=== PATIENT | male | born 1975 | race Caucasian/White ===

== ENCOUNTER 2019-02-11 10:40 | Emergency (ER) | payer OTHER ==
[2019-02-11 11:00] LABS: BASOPHILS % (AUTO) 0.6 %; EOSINOPHILS # (AUTO) 0.1 10^3/uL (0.0-0.7); EOSINOPHILS % (AUTO) 1.4 %; HGB - HEMOGLOBIN 14.4 g/dL (14.0-18.0); LYMPHOCYTES # (AUTO) 1.8 10^3/uL (1.5-3.5); LYMPHOCYTES % (AUTO) 20.7 %; MEAN CORPUSCULAR HEMOGLOBIN 30.2 pg (27.0-31.0); MEAN CORPUSCULAR HGB CONC 34.1 g/dL (32.0-36.0); MEAN CORPUSCULAR VOLUME 88.6 fL (80.0-94.0); MONOCYTES # (AUTO) 0.7 10^3/uL (0.0-1.0); MONOCYTES % (AUTO) 7.5 %; NEUTROPHILS # (AUTO) 6.1 10^3/uL (1.5-6.6); NEUTROPHILS % (AUTO) 69.8 %; PLT - PLATELET COUNT 376 10^3/uL (130-450); RED BLOOD COUNT 4.77 10^6/uL (4.70-6.10); RED CELL DISTRIBUTION WIDTH 13.2 % (12.0-15.0); WHITE BLOOD COUNT 8.7 x10^3/uL (4.8-10.8)
[2019-02-11 11:14] LABS: ALBUMIN 4.7 g/dL (3.2-5.5); ALBUMIN/GLOBULIN RATIO 1.5 (1.0-2.2); BILIRUBIN,TOTAL 0.7 mg/dL (0.2-1.0); CALCIUM 9.4 mg/dL (8.5-10.3); CREATININE 0.7 mg/dL (0.6-1.2); TOTAL PROTEIN 7.9 g/dL (6.7-8.2)
--- NOTE | 2019-02-11 11:24 | ED Physician Documentation ---
PD HPI CHEST PAIN - Stated complaint Stated Complaint: CHEST PAIN - Chief complaint Chief Complaint: Cardiac - History obtained from History obtained from: Patient - History of Present Illness Timing - onset: How many days ago (5) Timing - onset during: Rest Timing - duration: Seconds Timing - details: Abrupt onset, Now resolved, Intermittant Quality: Sharp, Pain Location: Left chest Radiation: Left upper extremity Improved by: Nothing Worsened by: Other (nothing) Associated symptoms: No: Shortness of air, Diaphoresis, Nausea, Vomiting, Feeling faint / dizzy, General Weakness, Palpitations, Cough Similar symptoms before: Has not had sx before Recently seen: Not recently seen - Additional information Additional information: Previously healthy 43-year-old male has developed sharp intermittent chest pains to the left chest over the past 5 days. He states he has had multiple episodes per day these last seconds and resolved without sequela. He denies any fever cough shortness of breath. Review of Systems Constitutional: denies: Fever Eyes: denies: Decreased vision Ears: denies: Ear pain Nose: denies: Congestion Throat: denies: Sore throat Cardiac: reports: Chest pain / pressure. denies: Palpitations, Pedal edema, Calf pain Respiratory: denies: Dyspnea, Cough GI: denies: Abdominal Pain, Nausea, Vomiting : denies: Dysuria, Frequency Skin: denies: Rash Musculoskeletal: denies: Neck pain, Back pain, Extremity pain, Extremity swelling Neurologic: denies: Generalized weakness, Focal weakness, Numbness PD PAST MEDICAL HISTORY - Past Medical History Past Medical History: No - Past Surgical History Past Surgical History: Yes - Present Medications Home Medications: Ambulatory Orders Medication Instructions Recorded Confirmed No Known Home Medications 02/11/19 02/11/19 - Allergies Allergies/Adverse Reactions: Allergies Allergy/AdvReac Type Severity Reaction Status Date / Time ampicillin Allergy Unknown Verified 02/11/19 10:48 - Social History Does the pt smoke?: No Smoking Status: Former smoker Does the pt drink ETOH?: Yes Does the pt have substance abuse?: No - Immunizations Immunizations are current?: Yes PD ED PE NORMAL - Vitals Vital signs reviewed: Yes (hypertensive ) - General General: Alert and oriented X 3, No acute distress, Well developed/nourished - HEENT HEENT: Atraumatic, PERRL, EOMI - Neck Neck: Supple, no meningeal sign - Cardiac Cardiac: RRR, No murmur - Respiratory Respiratory: No respiratory distress, Clear bilaterally, Other (no chest wall tendereness ) - Abdomen Abdomen: Soft, Non tender - Back Back: No CVA TTP, No spinal TTP - Derm Derm: Normal color, Warm and dry, No rash - Extremities Extremities: No deformity, No edema - Neuro Neuro: Alert and oriented X 3, 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, No motor deficit, No sensory deficit, Normal speech Eye Opening: Spontaneous Motor: Obeys Commands Verbal: Oriented GCS Score: 15 - Psych Psych: Normal mood, Normal affect Results - Vitals Vitals: Vital Signs - 24 hr 02/11/19 10:46 Temperature 36.8 C Heart Rate 85 Respiratory 14 Rate Blood Pressure 166/86 H O2 Saturation 98 Oxygen O2 Source Room air - EKG (time done) 1050 Rate: Rate (enter#) (79) Ischemia: ST elevation c/w repol Compare to prior EKG: Old EKG unavailable Computer interpretation: Agree with computer - Labs Labs: Laboratory Tests 02/11/19 02/11/19 02/11/19 10:54 10:54 10:54 WBC 8.7 RBC 4.77 Hgb 14.4 Hct 42.2 MCV 88.6 MCH 30.2 MCHC 34.1 RDW 13.2 Plt Count 376 MPV 8.0 Neut # (Auto) 6.1 Lymph # (Auto) 1.8 Dyer # (Auto) 0.7 Eos # (Auto) 0.1 Baso # (Auto) 0.0 Absolute Nucleated RBC 0.00 Nucleated RBC % 0.0 Sodium 138 Potassium 4.0 Chloride 101 Carbon Dioxide 23 Anion Gap 14.0 H BUN 14 Creatinine 0.7 Estimated GFR (MDRD) 123 Glucose 82 Calcium 9.4 Total Bilirubin 0.7 AST 32 ALT 39 Alkaline Phosphatase 51 Troponin I < 0.04 Total Protein 7.9 Albumin 4.7 Globulin 3.2 Albumin/Globulin Ratio 1.5 Lipase 26 - Rads (name of study) chest Radiology: Prelim report reviewed (Impression: Normal single view chest.), EMP read indepedently, See rad report PD MEDICAL DECISION MAKING - ED course Complexity details: reviewed results, re-evaluated patient, considered differential, d/w patient ED course: 43-year-old male with atypical chest pains very brief in nature sharp and in the left chest. He has negative diagnostics here in the emergency department neg ative review of systems and an un-concerning story. He is reassured and he will follow-up with his primary. He does state that he has noted his blood pressure has been up and he relates that he has been losing some weight purposely after gaining weight after moving to the area by himself waiting for his family to arrive here. Departure - Departure Disposition: 01 Home, Self Care Clinical Impression: Atypical chest pain Condition: Stable Instructions: ED Chest Pain Atypical Unkn Cause Follow-Up: [facility] [Provider Group]
--- NOTE | 2019-02-11 11:25 | XRAY Report ---
Reason: chest pain Procedure Date: 02/11/2019 Accession Number: [id number] / [id number] Procedure: XR - Chest 1 View X-Ray CPT Code: 41919 FULL RESULT: EXAM: CHEST RADIOGRAPHY EXAM DATE: 02/11/2019 11:10 AM. CLINICAL HISTORY: Chest pain. COMPARISON: None. TECHNIQUE: 1 view. FINDINGS: Lungs/Pleura: No focal opacities evident. No pleural effusion. No pneumothorax. Mediastinum: Within exam limitations, the cardiomediastinal contour is normal. Other: None. IMPRESSION: Normal single view chest. RADIA
[2019-02-11 11:52] VITALS: BP 173/99
== END 2019-02-11 11:55 | disposition home or self-care (01) ==
LOC: ED 10:40
DX: R07.89 Other chest pain (principal); Z87.891 Personal history of nicotine dependence
CPT/HCPCS: 36415; 71045; 80053; 83690; 84484; 85025; 93005; 99283; 99284

== ENCOUNTER 2019-04-09 13:36 | Emergency (ER) | payer OTHER ==
[2019-04-09 13:50] VITALS: BP 147/85
--- NOTE | 2019-04-09 15:32 | ED Physician Documentation ---
PD HPI UPPER EXT INJURY - Stated complaint Stated Complaint: LT BICEP INJURY - Chief complaint Chief Complaint: Trauma Ext - History obtained from History obtained from: Patient - History of Present Illness Location: Left, Arm Type of injury: Fall Where injury occurred: Home Timing - onset: Today Timing - duration: Hours Timing - details: Abrupt onset, Still present Improved by: Rest, Immobilization Worsened by: Moving, Palpating Associated symptoms: Swelling. No: Weakness, Numbness, Tingling Contributing factors: No: Anticoagulated Similar symptoms before: Diagnosis (ruptured achilles) Recently seen: Not recently seen - Additonal information Additional information: 43-year-old male was putting some items up on a shelf in his garage when his ladder slipped out from underneath him he grabbed a hold of the rafter and fell and yanked his arm. He has ruptured his left biceps. He is come in now with a cosmetic deformity to his arm with bulging of his bicep and a defect distally. He is able to flex and extend the arm he is unable to extend it fully he has normal distal neurovascular. Review of Systems Constitutional: denies: Chills Eyes: denies: Decreased vision Ears: denies: Ear pain Nose: denies: Congestion Respiratory: denies: Cough GI: denies: Vomiting, Diarrhea PD PAST MEDICAL HISTORY - Past Medical History Cardiovascular: None Respiratory: None Endocrine/Autoimmune: None GI: None : None Musculoskeletal: None Derm: None - Past Surgical History Past Surgical History: Yes - Present Medications Home Medications: Ambulatory Orders Medication Instructions Recorded Confirmed No Known Home Medications 02/11/19 02/11/19 - Allergies Allergies/Adverse Reactions: Allergies Allergy/AdvReac Type Severity Reaction Status Date / Time ampicillin Allergy Unknown Verified 04/09/19 13:50 - Social History Does the pt smoke?: No Smoking Status: Never smoker Does the pt drink ETOH?: Yes Does the pt have substance abuse?: No - Immunizations Immunizations are current?: Yes PD ED PE NORMAL - Vitals Vital signs reviewed: Yes (hypertensive ) - General General: Alert and oriented X 3, No acute distress, Well developed/nourished - HEENT HEENT: Atraumatic, PERRL, EOMI - Neck Neck: Supple, no meningeal sign - Respiratory Respiratory: No respiratory distress - Derm Derm: Normal color, Warm and dry, No rash - Extremities Extremities: Other (There is a deformity to the left arm with a defect to the distal biceps and bunching of the muscle proximally. He is able to flex against force and extend but not complete extension. There is not a lot of tenderness associated and the distal n/v is intact. 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 Departure - Departure Disposition: 01 Home, Self Care Clinical Impression: Biceps rupture, distal Qualifiers: Encounter type: initial encounter Laterality: left Qualified Code(s): S46.212A - Strain of muscle, fascia and tendon of other parts of biceps, left arm, initial encounter Condition: Stable Instructions: Biceps Tendonitis Distal Follow-Up: [facility] [Provider Group] Comments: Follow up with the orthopedic surgeon as this injury may require surgery to resolve properly .
== END 2019-04-09 15:49 | disposition home or self-care (01) ==
LOC: ED 13:36
DX: S46.212A Strain of muscle, fascia and tendon of other parts of biceps, left arm, initial encounter (principal); W11.XXXA Fall on and from ladder, initial encounter; Y93.E9 Activity, other interior property and clothing maintenance; Y92.008 Other place in unspecified non-institutional (private) residence as the place of occurrence of the external cause
CPT/HCPCS: 99282

== ENCOUNTER 2019-04-20 07:33 | Day surgery (SDC) | payer OTHER ==
[2019-04-20] MEDS ORDERED: cefTRIAXone 2 GM VIAL ONE (07:55)
[2019-04-20] MEDS ORDERED: LACTATED RINGERS 1,000 ML IV ONE ×2 (08:00→13:35)
[2019-04-20] MEDS ORDERED: VANCOMYCIN 1 GM VIAL ONE (08:28)
[2019-04-20] MEDS ORDERED: CEFAZOLIN SODIUM IN 0.9 % NACL 2 GM/100 ML BAG IV ONE (08:38)
--- NOTE | 2019-04-20 08:43 | ANESTHESIA ---
Pre-Anesthesia VS, & Labs - Diagnosis Left biceps tendon rupture - Procedure Left biceps tendon repair Vital Signs: Temp Pulse Resp BP Pulse Ox 36.6 C 66 18 140/86 H 98 04/20/19 08:03 04/20/19 08:03 04/20/19 08:03 04/20/19 08:03 04/20/19 08:03 Height 6 ft Weight (kg) 104.33 kg Body Mass Index 29.8 - Lab Results Lab results reviewed: Yes Home Medications and Allergies Home Medications: Ambulatory Orders Valacyclovir HCl [Valtrex] 1,000 mg PO ONCE PRN 04/16/19 clonazePAM [Clonazepam] 0.5 mg PO DAILY PRN 04/16/19 Valacyclovir HCl [Valtrex] 1,000 mg PO ONCE PRN 04/16/19 clonazePAM [Clonazepam] 0.5 mg PO DAILY PRN 04/16/19 Allergies/Adverse Reactions: Allergies Allergy/AdvReac Type Severity Reaction Status Date / Time ampicillin Allergy Unknown Verified 04/16/19 15:25 Anes History & Medical History - Anesthetic History Anesthesia Complications: reports: No previous complications Family history of Anesthesia Complications: Denies Family history of Malignant Hyperthermia: Denies - Medical History Cardiovascular: reports: None Pulmonary: reports: None Gastrointestinal: reports: None Urinary: reports: None Neuro: reports: None Musculoskeletal: reports: None, Other Endocrine/Autoimmune: reports: None Blood Disorders: reports: None Skin: reports: None Smoking Status: Never smoker Psychosocial: reports: No issues indicated - Surgical History General: Other Eyes Ears Nose Throat (EENT): Other Exam General: Alert Dental: WNL Mouth Opening: Greater than 4 Fingerbreadths Neck Mobility: Normal Mallampati classification: I Respiratory: Lungs clear Cardiovascular: Regular rate Neurological: Normal speech Mental/Cognitive Status: Alert/Oriented X3 Cognitive Status: Within normal limits Plan Anesthesia Type: General, Interscalene Block Consent for Procedure(s) Verified and Reviewed: Yes Code Status: Attempt Resuscitation ASA classification: 1-Healthy patient Is this case an emergency?: No
[2019-04-20] MEDS ORDERED: BUPIVACAINE 0.25% PF 30 ML VIAL ONE (10:16)
[2019-04-20] MEDS ORDERED: BUPIVACAINE 0.25% PF 30 ML VIAL SUBQ ONE ×2 (11:41)
[2019-04-20] MEDS ORDERED: SUGAMMADEX 200 MG/2 ML VIAL IVP ONE (13:42)
[2019-04-20] MEDS ORDERED: oxyCODONE 5 MG TABLET PO PRN (14:20)
[2019-04-20] MEDS ORDERED: ONDANSETRON 4 MG/2 ML VIAL IVP PRN (14:20)
--- NOTE | 2019-04-20 14:26 | OPERATIVE REPORT ---
Operative Report - General Planned Procedure: Left distal biceps repair Pre-Op Diagnosis: Left distal biceps rupture Procedure Performed: Left distal biceps repair Post Op Diagnosis: Left distal biceps rupture - Procedure Note Primary Surgeon: JENNA PERALES Secondary Surgeon: MARY JO SOLOMON Anesthesia Technique: General ET tube Estimated Blood Loss (mL): 5 - Other Other Information/Narrative: TOURNIQUET TIME: 100 min IMPLANTS: Arthrex 8mm PEEK tenodesis screw. Arthrex distal biceps button DISPOSITION: Stable to recovery INDICATIONS: This is a 43-year-old [id number] male, he sustained injury to the left distal biceps tendon approximately 10 days ago when he was falling from a ladder and reached out and grabbed a rafter. He felt a pop and had immediate pain in his antecubital fossa, with subsequent swelling and ecchymosis. He was seen at outside hospital where he was diagnosed with a distal biceps rupture and presented to orthopedics for evaluation and further management. 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 He has settling and resolving ecchymosis at the medial elbow. We discussed treatment options to include nonoperative management versus operative repair of the distal biceps tendon. He desired to proceed with surgical management. We discussed risks including pain, bleeding, infection, nerve and blood vessel damage, stiffness, loss of motion, need for further surgery, implant complications, blood clot, stroke, heart attack, and . We discussed the expected postoperative course. He expressed understanding of all this, questions were answered, and he desired to proceed with surgery. Written consent was signed. DESCRIPTION OF OPERATION: The patient was positively identified in the preoperative holding area. The correct operative extremity, the left elbow, was identified and initialed. The consent and H&P were verified. The patient was brought to the operating room, placed supine position with the left arm extended on a hand table. After adequate general anesthesia was obtained, the arm was prepped and draped to the axilla. Following draping, a sterile tourniquet was placed high on the left brachium. We then paused for a time out, confirming patient identity, procedure, laterality, equipment and antibiotics. Satisfied that this was correct, we proceeded. The proximal 8cm of the volar Alban approach were marked out on the volar forearm, centered proximal-distal 3-finger breadths below the elbow flexion crease and along the ulnar border of the brachioradialis. The arm was exsanguinated with an esmarch and the tourniquet was inflated to 250mmHg. An incision was made shaply though the skin and the dissection was continued through the subcutaneous fat using Metzenbaum scissors. We took care to look for the LABCN, however we did not encounter the nerve. The antebrachial fascia was divided in line with the incision, and a leash of several crossing vessels were isolated and ligated with silk ties and then divided. We deepened the interval ulnar to the brachioradialis until the radial tuberosity was identified. We turned our attention proximal looking for the retracted biceps tendon, however using digital palpation were not able to positively identify it. An approximately 2 cm transverse incision was made across the anterior portion of the lower arm, sharply through skin with blunt dissection through subcutaneous tissues, and longitudinal incision of the fascia. As the fascia was incised, we were met with a large seroma the decompressed, with easy identification of the biceps tendon underneath. Biceps tendon was freed up from the surrounding scar tissue and adhesions, and mobilized out of the wound. The distal 3 mm of the tendon was sharply excised, and the distal 3 cm of the tendon was whipstitched using a fiber loop. Once stitched, the distal end of the tendon was contoured, to facilitate passing through an 8 mm tunnel. The tendon was sized and found to fit tightly through an 8 mm tunnel, but not 7 mm. The sutures and tendon were then delivered from the proximal incision to the distal incision using finger manipulation. We prepared the radial tuberosity with a centeno elevator and placed the guide pin bicortically through the tuberosity under direct visualization. Position was confirmed with fluoroscopy. The proximal cortex was reamed with a 8mm reamer. The wound was then copiously irrigated to remove bone debris. The fiberloop sutures were then passed through the button and the button was passed bicortically. The arm was flexed to 60 deg and the sutures were tensioned to advance tendon into the prepared socket with good fit. A free needle was used to pass one limb of the suture through the tendon and a knot was tied. One limb of the suture was passed through the center of the biotenodesis screw and the screw was advanced into the socket radial to the tendon, flush with the anterior cortex with good fit. The arm was slowly extended and could get to 40 deg before the tendon became taut. Final radiographs were obtained, demonstrating good placement of the hardware. The wound was irrigated again, and tourniquet was released. Pressure was held for 5 minutes and then the wound inspected for abnormal bleeding. The wound was found to be dry. The wound was then closed with 2-0 vicryl interrupted subcutaeous and running 3-0 monocryl subcuticular stitches. Mastisol and steristrips were applied and 10ml of 0.25% marcaine was administered in the lc-incisional tissues. Xeroform, 4x4 gauze and sterile webril were applied, followed by a long arm posterior slab splint with an outrigger. Anesthesia was reversed, the patient awakened, and the patient transferred to recovery room in stable condition without incident. There were no complications, the patient tolerated the procedure well. Postoperatively, he will remain in the splint for 2 weeks until follow-up, after which we will start range of motion until 6 weeks post-op, followed by strengthening.
[2019-04-20] MEDS ORDERED: oxyCODONE 5 MG TABLET ONE (14:56)
[2019-04-20 14:57] VITALS: BP 128/85
== END 2019-04-20 07:34 | disposition home or self-care (01) ==
LOC: SDS 07:33
PROVIDERS: ATTEND Orthopaedic Surgery
PROC: 0LM40ZZ Reattachment of Left Upper Arm Tendon, Open Approach (ICD-10-PCS; principal; 2019-04-20 09:15)
DX: S46.212A Strain of muscle, fascia and tendon of other parts of biceps, left arm, initial encounter (principal)
CPT/HCPCS: 24342; A9270; C1713; J0690; J7120

== ENCOUNTER 2019-09-20 10:08 | Outpatient (CLI) | payer OTHER ==
--- NOTE | 2019-09-20 10:48 | XRAY Report ---
Reason: POST HEEL PAIN LT Procedure Date: 09/20/2019 Accession Number: [id number] / [id number] Procedure: XR - Calcaneus LT CPT Code: Final Report FULL RESULT: EXAM: LEFT ANKLE RADIOGRAPHY EXAM DATE: 09/20/2019 10:20 AM. CLINICAL HISTORY: Post heel pain, left. COMPARISON: None. TECHNIQUE: 2 views. FINDINGS: Bones: No fracture is directly visualized; Bohler angle exceeds 40 degrees as visualized. Calcaneus fracture is typically associated with a decreased Bohler angle. Joints: Remaining alignment appears preserved without dislocation seen. Soft Tissues: Normal. No soft tissue swelling. IMPRESSION: No convincing evidence of traumatic osseous injury. RADIA
== END 2019-09-20 10:09 | disposition home or self-care (01) ==
LOC: DI 10:08
PROVIDERS: ATTEND Podiatrist
DX: M79.672 Pain in left foot (principal)

== ENCOUNTER 2020-01-17 14:33 | Outpatient (CLI) | payer OTHER ==
--- NOTE | 2020-01-18 12:55 | MRI Report ---
Reason: PAIN Procedure Date: 01/17/2020 Accession Number: [id number] / [id number] Procedure: MRI - Foot LT W/O CPT Code: Final Report FULL RESULT: EXAM: LEFT FOREFOOT MRI WITHOUT CONTRAST EXAM DATE: 01/17/2020 03:35 PM. CLINICAL HISTORY: Pain at the plantar aspect of the forefoot. COMPARISON: None. TECHNIQUE: Multiplanar, multisequence T1-weighted and fluid-sensitive sequences of the forefoot without contrast. Other: None. FINDINGS: Bones and Articular Cartilage: Focal subchondral marrow edema and moderate cartilage thinning at the base of the first proximal phalanx. No acute fracture or bone lesions. No subluxations. Joints: No subluxations. Very small first MTP joint effusion. The dzvomu-xwgbojhb-gvwhhpebac complex is unremarkable. The visualized plantar plates are unremarkable. Ligaments: The visualized collateral ligaments are intact. Tendons: The flexor and extensor tendons are unremarkable. Musculature: No edema or fatty atrophy. Other: Small amount of fluid at the third intermetatarsal bursa. The subcutaneous tissues are unremarkable. IMPRESSION: 1. Small amount of fluid at the third intermetatarsal bursa. 2. 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 Very small first MTP joint effusion. RADIA
--- NOTE | 2020-01-18 12:55 | MRI Report ---
Reason: ACHILLES TENDINITIS Procedure Date: 01/17/2020 Accession Number: [id number] / [id number] Procedure: MRI - Ankle LT W/O CPT Code: Final Report FULL RESULT: EXAM: LEFT ANKLE/HINDFOOT MRI WITHOUT CONTRAST EXAM DATE: 01/17/2020 05:10 PM. CLINICAL HISTORY: Achilles tendinitis. COMPARISON: None. TECHNIQUE: Multiplanar, multisequence T1-weighted and fluid-sensitive sequences of the ankle/hindfoot without contrast. Other: None. FINDINGS: Bones and Articular Cartilage: Mild marrow edema at the posterior plantar aspect of the calcaneus. No acute fracture or bone lesions. Articular cartilage is within normal limits. Ligaments: The anterior and posterior tibiofibular, anterior and posterior talofibular, and calcaneofibular ligaments are intact. The deep and superficial deltoid and spring ligaments are intact. Anterior Tendons: The tibialis anterior, extensor hallucis longus, and extensor digitorum longus tendons are unremarkable. Medial Tendons: The tibialis posterior, flexor digitorum longus, and flexor hallucis longus tendons are unremarkable. Lateral Tendons: Minimal peroneus longus and brevis tenosynovitis. No tear. Achilles Tendon: The Achilles tendon is unremarkable. Musculature: No edema or fatty atrophy. Other: No effusions. The contents of the sinus tarsi and tarsal tunnel are unremarkable. Fasciopathy and small low-grade partial tear at the proximal end of the plantar fascia. The subcutaneous tissues are unremarkable. IMPRESSION: 1. Fasciopathy and small low-grade partial tear at the proximal end of the plantar fascia. 2. Minimal peroneus longus and brevis tenosynovitis. 3. No Achilles tear or tendinosis. RADIA
== END 2020-01-17 14:34 | disposition home or self-care (01) ==
LOC: DI 14:33
PROVIDERS: ATTEND Registered Nurse Diabetes Educator
DX: S93.692A Other sprain of left foot, initial encounter (principal); M65.9 Synovitis and tenosynovitis, unspecified; M94.272 Chondromalacia, left ankle and joints of left foot; M25.475 Effusion, left foot

== ENCOUNTER 2022-04-12 14:05 | Outpatient (CLI) | payer OTHER ==
--- NOTE | 2022-04-12 16:31 | MRI Report ---
PROCEDURE: Knee LT W/O INDICATIONS: KNEE PAIN TECHNIQUE: Noncontrast sagittal PD fast spin echo and T2 fast spin echo with fat saturation, sagittal 3-D gradie nt sequence with fat saturation; coronal T1 spin echo and PD fast spin echo with fat saturation, and axial PD fast spin echo with fat saturation through the knee. COMPARISON: None. FINDINGS: Image quality: Excellent. Menisci: There is peripheral displacement of medial meniscus bowing medial collateral ligament. Compl ex tear involving posterior horn of medial meniscus extending to both superior superior and inferior articulating surface is seen. There is no focal lateral meniscal tear. The meniscal root ligaments ap pear intact. Cruciate ligaments: The anterior and posterior cruciate ligaments appear intact. Medial structures: Low-grade medial collateral ligament sprain/partial thickness tear is noted.. The posterior oblique ligament, semimembranosus tendon insertions, and oblique popliteal ligament, and m eniscocapsular junction appear intact. Visualized portions of the pes anserinus tendons appear jacinta l. No abnormal bursal fluid. Lateral structures: The lateral collateral ligament, long and short heads of the biceps femoris tend on appear intact. The popliteus tendon appears normal; the popliteofibular ligament appears intact. Iliotibial band appears normal. Anterior structures: The quadriceps and patellar tendons appear intact. Patellar alignment is jacinta l. No femoral trochlear dysplasia or ventral trochlear prominence. No edema in the infrapatellar fa t pad. Bones and cartilage: No bone marrow contusions or fractures. Mild tricompartmental osteoarthritis an d low-grade chondromalacia is seen more prominent in medial femoral tibial compartment. Joint space: There is small amount of joint fluid. A small popliteal cyst is seen measures up to 2.8 x 1.6 x 4.1 cm in size. Normal appearing synovial plicae are incidentally noted. IMPRESSION: 1. Peripheral displacement of medial meniscus bowing medial collateral ligament. Complex tear involvi ng body and posterior horn of medial meniscus extending to both superior and inferior articulating meeks rfaces. No focal lateral meniscal tear. 2. Cruciate ligaments are intact. Low-grade MCL sprain/partial thickness tear. 3. Mild tricompartmental osteoarthritis and low-grade chondromalacia more prominent in medial femoral tibial compartment. No fracture or dislocation. Small joint effusion and small popliteal cyst as abo ve. Reviewed by: Saroj Jean MD on 04/12/2022 4:29 PM PDT Approved by: Saroj Jean MD on 04/12/2022 4:29 PM PDT Station ID: [id number]
== END 2022-04-12 14:06 | disposition home or self-care (01) ==
LOC: DI 14:05
PROVIDERS: ATTEND Student in an Organized Health Care Education/Training Program
DX: S83.232A Complex tear of medial meniscus, current injury, left knee, initial encounter (principal); M23.632 Other spontaneous disruption of medial collateral ligament of left knee; S83.412A Sprain of medial collateral ligament of left knee, initial encounter; M17.12 Unilateral primary osteoarthritis, left knee; M94.262 Chondromalacia, left knee; M25.462 Effusion, left knee; M71.22 Synovial cyst of popliteal space [Baker], left knee

== ENCOUNTER 2022-06-09 14:59 | Outpatient (CLI) | payer OTHER ==
--- NOTE | 2022-06-09 16:49 | MRI Report ---
PROCEDURE: Knee RT W/O INDICATIONS: PAIN IN RIGHT KNEE TECHNIQUE: Noncontrast sagittal PD fast spin echo and T2 fast spin echo with fat saturation, sagittal 3-D gradie nt sequence with fat saturation; coronal T1 spin echo and PD fast spin echo with fat saturation, and axial PD fast spin echo with fat saturation through the knee. COMPARISON: None. FINDINGS: Image quality: Excellent. Menisci: There is a complex tear involving the posterior horn and body of the patient's medial menisc us extending both to superior and inferior joint surfaces. Lateral meniscus appears within normal dobbins its. Cruciate ligaments: The anterior and posterior cruciate ligaments appear intact. Medial structures: The medial collateral ligament appears intact. The posterior oblique ligament, s emimembranosus tendon insertions, and oblique popliteal ligament, and meniscocapsular junction appear intact. Visualized portions of the pes anserinus tendons appear normal. No abnormal bursal fluid. Lateral structures: The lateral collateral ligament, long and short heads of the biceps femoris tend on appear intact. The popliteus tendon appears normal; the popliteofibular ligament appears intact. The posterosuperior and anteroinferior popliteomeniscal fascicles appear intact. The arcuate and fa bellofibular ligaments appear intact, around the lateral inferior geniculate artery. Iliotibial band appears normal. Anterior structures: The quadriceps and patellar tendons appear intact. Patellar alignment is jacinta l. No femoral trochlear dysplasia or ventral trochlear prominence. No edema in the infrapatellar fa t pad. Bones and cartilage: No bone marrow contusions or fractures. There is some mild chondromalacia invol ving the articular surfaces of the medial compartment. Joint space: Small knee joint effusion is present. No Ingram's cyst. Normal appearing synovial plica e are incidentally noted. IMPRESSION: 1. Complex tear involving the posterior horn and body of the patient's medial meniscus extending to s uperior and inferior joint surfaces. 2. Mild chondromalacia articular surfaces of the medial compartment. 3. Small knee joint effusion. Reviewed by: Julius Veloz MD on 06/09/2022 4:48 PM PDT Approved by: Julius Veloz MD on 06/09/2022 4:48 PM PDT Station ID: [id number]
== END 2022-06-09 15:00 | disposition home or self-care (01) ==
LOC: DI 14:59
PROVIDERS: ATTEND Student in an Organized Health Care Education/Training Program
DX: M23.221 Derangement of posterior horn of medial meniscus due to old tear or injury, right knee (principal); M94.261 Chondromalacia, right knee; M25.461 Effusion, right knee

== ENCOUNTER 2022-11-13 07:32 | Outpatient (CLI) | payer OTHER ==
--- NOTE | 2022-11-15 10:07 | MRI Report ---
PROCEDURE: CERVICAL SPINE WO INDICATIONS: HIP PAIN,CERVICALGIA TECHNIQUE: Noncontrast sagittal T1 spin echo and T2 fast spin echo, sagittal STIR, foraminal oblique sagittal T2 fast spin echo, and axial gradient echo or T2 fast spin echo through the cervical spine. COMPARISON: None. FINDINGS: Image quality: Excellent. Alignment and Curvature: There is normal bony alignment. Bone Marrow: Marrow demonstrates normal overall signal. Spinal Cord: Visualized spinal cord has normal size and signal. No cerebellar tonsillar herniation. Paraspinous Soft Tissues: No paravertebral masses. Prevertebral soft tissues are normal in thicknes s. C2-C3: No canal stenosis or foraminal stenosis. C3-C4: Diffuse disc bulge. No canal stenosis. Bilateral uncovertebral joint hypertrophy. Mild bilat eral facet hypertrophy. Bilateral moderate to severe foraminal stenosis with some degree of foraminal C4 nerve root impingement bilaterally. C4-C5: No canal stenosis. Bilateral facet hypertrophy. Mild bilateral foraminal narrowing. C5-C6: Diffuse disc bulge. No canal stenosis. No significant foraminal stenosis. C6-C7: Disc bulge. No canal stenosis. Mild bilateral foraminal stenosis. C7-T1: No canal stenosis or foraminal stenosis. IMPRESSION: 1. There is no central canal stenosis. 2. At C3-C4, there is moderate to severe bilateral foraminal stenosis with some degree of foraminal C 4 nerve root impingement bilaterally. Reviewed by: Orlando Singh MD on 11/15/2022 10:05 AM PST Approved by: Orlando Singh MD on 11/15/2022 10:05 AM PST Station ID: [id number]
--- NOTE | 2022-11-15 12:34 | MRI Report ---
PROCEDURE: HIP WO - LT INDICATIONS: HIP PAIN,CERVICALGIA TECHNIQUE: Noncontrast coronal T1 spin echo and STIR through the bony pelvis. Coronal and axial T2 fast spin ec ho with fat saturation, sagittal T1 spin echo, and oblique axial T2 fast spin echo with fat saturatio n through the hip. COMPARISON: None. FINDINGS: Image quality: Excellent. Bones and joints: Mild bilateral hip joint osteoarthritic changes are seen with superior joint space narrowing and subchondral sclerosis. There is no marrow edema. No intraosseous lesions or fractures. No avascular necrosis of the femoral heads. There is mild prominence of superior femoral head neck j unction which can be seen associated with cam-type femoral acetabular impingement. The visualized low er lumbar spine appears normally aligned. Tendons: Distal left gluteus medius and minimus tendinosis at their insertion on greater trochanter i s seen, without associated muscle atrophy. The iliopsoas tendon appears intact, without adjacent bur faye fluid collections. The origin of the hamstring tendon is intact at the ischial tuberosity. Labrum and cartilage: There is signal abnormality, contour irregularity involving superior anterior l eft hip labrum at 12 to 1:00 position with adjacent 8 mm perilabral cyst. Thinning of articulating ca rtilages of femoral head is also seen. The alpha angle of the femur is within normal limits at less t patel 55 degrees. Soft tissues: Visualized muscles demonstrate normal bulk and internal signal. The proximal sciatic neurovascular bundle appears normal adjacent to the hamstring tendons. No free pelvic fluid. Bladde r wall thickness is normal. Genitourinary structures and bowel loops appear normal where visualized. IMPRESSION: . Symmetric appearing mild bilateral hip joint osteoarthritis. No hip fracture or dislocation. No calin dence of avascular necrosis of femoral head. Mild prominence of left superior femoral head neck junct ion is seen which can be seen associated with cam-type femoral acetabular impingement. 2. Distal left gluteus medius and minimus tendinosis at their insertion on greater trochanter. No oth er muscle or tendon signal abnormalities. 3. Suggestion of superior anterior left hip labral tear at 12 to 1:00 position with adjacent 8 mm per ilabral cyst. Reviewed by: Saroj Jean MD on 11/15/2022 12:32 PM PST Approved by: Saroj Jean MD on 11/15/2022 12:32 PM PST Station ID: [id number]
== END 2022-11-13 07:33 | disposition home or self-care (01) ==
LOC: DI 07:32
PROVIDERS: ATTEND Student in an Organized Health Care Education/Training Program
DX: M16.0 Bilateral primary osteoarthritis of hip (principal); M67.854 Other specified disorders of tendon, left hip; M48.02 Spinal stenosis, cervical region

== ENCOUNTER 2022-12-15 09:41 | Outpatient (CLI) | payer OTHER ==
[~2022-12-15 09:41] MED LIST: BUPIVACAINE 0.5% PF 10 ML VIAL ONE; LIDOCAINE-MPF 1% 5 ML VIAL ONE; TRIAMCINOLONE 40 MG/ML VIAL ONE
[2022-12-15] MEDS ORDERED: BUPIVACAINE 0.5% PF 10 ML VIAL IM ONE (11:38)
[2022-12-15] MEDS ORDERED: TRIAMCINOLONE 40 MG/ML VIAL IM ONE (11:39)
[2022-12-15] MEDS ORDERED: LIDOCAINE-MPF 1% 5 ML VIAL TD ONE (11:40)
--- NOTE | 2022-12-15 13:49 | XRAY Report ---
PROCEDURE: Inj/Aspiration Major Joint INDICATIONS: OSTEOARTHRITIS LEFT HIP CONTRAST: Omnipaque FLUORO TIME: 0.3 TECHNIQUE: The indications, alternatives, benefits, risks, and complications of the procedure were explained to the patient. Written informed consent was obtained and placed in the chart. The patient was placed in an appropriate position on the fluoroscopy table, and a site was chosen for percutaneous access un shay fluoroscopic guidance. Local anesthetic was administered using a 1% lidocaine solution. A hypod ermic or spinal needle was then used to access the symptomatic joint. Intra-articular location of th e needle tip was confirmed by injecting a small amount of contrast, followed by steroid administratio n. The needle was then withdrawn, and a bandage applied to the puncture site. FINDINGS: Joint injected: Left hip Medications injected: 4 mL of 40 mg/mL Kenalog and 0.5% Ropivacaine mixture. Complications: None. Pain: Pre-injection 8/10. Pain: Post injection: 0/10. IMPRESSION: Successful fluoroscopically guided administration of steroid and anaesthetic solution into the left h ip joint. Reviewed by: Ben Jaramillo MD on 12/15/2022 1:47 PM PDT Approved by: Ben Jaramillo MD on 12/15/2022 1:47 PM PDT Station ID: [id number]
== END 2022-12-15 09:42 | disposition home or self-care (01) ==
LOC: DI 09:41
PROVIDERS: ATTEND Student in an Organized Health Care Education/Training Program
DX: M16.12 Unilateral primary osteoarthritis, left hip (principal)
CPT/HCPCS: 20610; 77002; Q9965

== ENCOUNTER 2023-01-03 09:57 | Outpatient (CLI) | payer OTHER ==
[2023-01-03 12:41] VITALS: BP 122/70
--- NOTE | 2023-01-03 12:41 | SLEEP CARE CONSULTATION ---
Information from patient questionnaire entered by Edda Zayas. I have reviewed and concur with the information entered by Edda Zayas. This document represents the service I personally performed and the decisions made by me, Geetha Mcclain MD, [facility]. History of Present Illness Service Date and Time: 01/03/2023 0957 Reason for Visit: New patient Chief Complaint: reports: Insomnia, Snoring, Observed pauses in breathing, Fatigue, Frequent awakenings at night, Other (UPDATE SUPPLIES) Date of Onset: SEP 2003 Usual bedtime: 9PM Time it takes to fall asleep: A FEW MINS Snores at night: Yes Observed to quit breathing while asleep: Yes Sleeps alone due to snoring: No Number of times waking at night: 1 Reasons for waking at night: reports: Other (UNKNOWN) Toss, Turn, or Twitch while sleeping: Yes Recalls having dreams: No Usually gets out of bed at: 4AM Feels refreshed in the morning: No Morning headache: No Sleepy or fatigued during the day: Yes Ever fallen asleep while driving: No Takes day naps: No Dreams during day naps: No Prior sleep studies: Yes Year and Where: DECEMBER 2020 I [facility] Additional HPI information: I had the pleasure of seeing Mr. Perez today regarding obstructive sleep apnea-hypopnea. As you know, he is a 47-year-old gentleman who was diagnosed with the sleep-disordered breathing at [facility] in [place] on 06/22/2021. The AHI was 15.2 and robby oxygen saturation, 85%. There was also mild periodic leg movement of sleep. He was prescribed a CPAP device set at 5 15 cmH2O. He uses every night and all night. The compliance data show usage in 348 out of the past 365 nights, averaging 6 hours a night. The residual AHI is 0.8 and average air leak is 0.5 L/minute. He wears nasal pillows. He gets his supplies from [email or web address]. He finds the treatment very beneficial. - Parasomnia Symptoms Ever been unable to move upon waking from sleep: No Walks in sleep: No Talks in sleep: No Ever acted out dreams in sleep: No Ever felt weak in the knees when startled or emotional: No Bothered by creepy, crawly, restless sensations in legs: No Problems with memory or concentration: No Subjective Initial [place] Sleepiness Scale score: 9 (12/31/22) Past Medical History Past Medical History: reports: Anxiety Social History The patient's occupation is a [employer]. Patient is and lives in [place]. Have you smoked in the past 12 months: No Years of smokin Quit date: 2017 Alcohol use: Yes Alcohol amount and frequency: 6+BEERS WEEKENDS Caffeine use: Yes Caffeine amount and frequency: 4CUPS DAILY Family History Family history of sleep disordered breathing: No Allergies and Home Medications Known drug allergies: Yes (AMPICILIN) Drug allergies reviewed: Yes Home medication list reviewed: Yes Allergy and home medication list: Allergies ampicillin Allergy (Verified 12/31/22 10:47) Unknown Review of Systems Weight gain over past 5 years: 50 Cardiovascular: denies: high blood pressure, palpitations, chest pain, irregular heart rate or pulse, leg or foot swelling, have to sleep sitting up, other Respiratory: denies: shortness of breath, wheeze, sputum production, chronic cough, other Gastrointestinal: reports: heartburn Urinary: denies: incontinence, frequency, urgency, impotence, other Neurological: denies: headaches, seizure, head trauma, disorientation, speech dysfunction, gait or balance problems, fainting or unconsciousness, other Psychiatric: reports: anxiety Ear/Nose/Throat: reports: wisdom teeth removed Endocrine: reports: sluggishness Musculoskeletal: reports: joint pain, neck pain, back pain, joint swelling Immunologic: denies: sneezing, rash, itching, allergies to food or environment, other Physical Exam Vital signs obtained and entered by: EDDA Torres MA Blood Pressure: 122/70 (LEFT ARM) Cuff size: regular Heart Rate: 72 O2 Saturation: 96 Height: 6 ft Weight: 240 lb 12.8 oz Body Mass Index: 32.6 BMI Classification: Obese Neck circumference: 15.5 Mood/affect: Normal HEENT: No craniofacial malformation Nostrils: patent to airflow Turbinates: normal Septum: deviated left Mouth and throat: narrow oropharynx Soft palate: long Hard palate: normal Uvula: normal Tongue: normal in size Tonsils: small Chin and jaw: normal size and position Heart: regular rate and rhythm Lungs: clear bilaterally Extremities: no edema or clubbing Neurologic: intact Impression and Plan IMPRESSION: 1. Obstructive Sleep Apnea-Hypopnea Syndrome, as previously diagnosed. The patient has excellent treatment compliance and reports significant improvement. Narrow oropharynx and obesity are common predisposing factors for obstructive sleep apnea-hypopnea syndrome. The current pressure setting appears effective and comfortable. No adjustment is necessary today. Plan: 1. Continue with autoCPAP set at 5 15 cmH2O. 2. Prescription made for supplies through [email or web address]. 3. Try to lose weight. 4. Return for a follow-up in a year or earlier if there is any problem. Counseling Topics: Weight control Prescriptions: Device supplies Follow up with Sleep Care in: 1 year Visit Type: In Office Time Spent with Patient (minutes): 15 Provider Statement: I spent 100% of the Face to Face Visit with the patient with greater than 50% spent counseling the patient and coordination of care.
== END 2023-01-03 09:58 | disposition home or self-care (01) ==
LOC: SC 09:57
PROVIDERS: ATTEND Internal Medicine Pulmonary Disease
DX: G47.33 Obstructive sleep apnea (adult) (pediatric) (principal); E66.9 Obesity, unspecified; Z68.32 Body mass index [BMI] 32.0-32.9, adult; Z87.891 Personal history of nicotine dependence
CPT/HCPCS: 99202; 99212

== ENCOUNTER 2023-01-13 10:30 | Outpatient (CLI) | payer OTHER ==
--- NOTE | 2023-01-13 14:23 | XRAY Report ---
PROCEDURE: Pelvis 1 View INDICATIONS: LEFT HIP PAIN TECHNIQUE: 1 view(s) of the pelvis acquired. COMPARISON: None. FINDINGS: Bones: No fractures or dislocations. No suspicious bony lesions. Soft tissues: Visualized bowel gas pattern is normal. No suspicious soft tissue calcifications. IMPRESSION: No visualized acute fracture or dislocation. However, occult injury cannot be excluded. Recommend lee rt interval imaging follow-up in 7-10 days/CT/MR as clinically indicated for additional evaluation. Reviewed by: Yesenia Saleh MD on 01/13/2023 2:22 PM PDT Approved by: Yesenia Saleh MD on 01/13/2023 2:22 PM PDT Station ID: [id number]
== END 2023-01-13 23:59 | disposition home or self-care (01) ==
LOC: DI.WOS 10:30
PROVIDERS: ATTEND Physician Assistant Surgical
DX: M25.552 Pain in left hip (principal)

== ENCOUNTER 2023-03-16 07:40 | Outpatient (CLI) | payer OTHER ==
--- NOTE | 2023-03-16 10:45 | MRI Report ---
PROCEDURE: THORACIC SPINE WO INDICATIONS: THORACIC AND LUMBER PAIN TECHNIQUE: Noncontrast sagittal T1 spine echo and T2 fast spin echo, sagittal STIR, axial T1 and T2 fast spin ec ho through the thoracic spine. COMPARISON: Correlation is made with the accompanying lumbar spine MRI. FINDINGS: Image quality: Excellent. Alignment and Curvature: There is accentuated thoracic kyphosis. No significant AP alignment abno rmality can be seen. Bone Marrow: Marrow is of normal overall signal. No acute vertebral body compression fractures. Se veral midthoracic anterior wedge deformities are seen, which are overall worst at T8, with 30-40% los s of height anteriorly. Spinal Cord: Visualized spinal cord is normal in size and signal. Paraspinous Soft Tissues: No paravertebral masses. Miscellaneous: Several levels of mild to moderate mid thoracic spine neuroforaminal narrowing can be seen. No significant central canal narrowing is seen. IMPRESSION: Several levels of mid thoracic spine anterior wedge deformity can be seen, with associated accentuate d thoracic kyphosis. No findings of acute or subacute fracture can be seen. Several levels of mild to moderate mid thoracic spine neuroforaminal narrowing can be seen. No central canal narrowing is seen. Reviewed by: Ramsey Patton MD on 03/16/2023 9:43 AM AMANDA Approved by: Ramsey Patton MD on 03/16/2023 9:43 AM AMANDA Station ID: [id number]
--- NOTE | 2023-03-16 10:48 | MRI Report ---
PROCEDURE: LUMBAR SPINE WO INDICATIONS: Lumbar PAIN TECHNIQUE: Noncontrast sagittal T1 spin echo and T2 fast echo, sagittal STIR, axial T1 and T2 fast spin echo thr ough the lumbar spine. In cases with scoliosis, additional coronal T2 fast spin echo may be performe d. COMPARISON: Correlation is made with the accompanying thoracic spine MRI. FINDINGS: Image quality: Diagnostic. Alignment and Curvature: There is mildly accentuated lumbar lordosis. No significant AP alignment a bnormality can be seen. Bone Marrow: Marrow is of normal overall signal. No acute vertebral body compression fractures. Spinal Cord: Conus medullaris terminates at the L1 level. Visualized cord demonstrates normal signa l and size. Paraspinous Soft Tissues: No paravertebral masses. Diverticulosis can be seen, without anne marie findin gs of active diverticulitis. T12-L1: Mild loss of disc height and disc signal are seen. No significant neural foraminal or centra l canal narrowing can be seen. L1-L2: Level within normal limits. L2-L3: Unremarkable. L3-L4: The disc height is relatively well preserved. Mild disc bulge is seen. Mild facet hypert rophy is seen. There is moderate left-sided and no significant right-sided neuroforaminal narrowing. No significant central canal narrowing is seen. L4-L5: The disc height is well-preserved. There is loss of disc signal seen. Mild to moderate disc bulge is seen, which is eccentric to the right. Mild to moderate facet hypertrophy is seen at this le shandra. Moderate bilateral neuroforaminal narrowing can be seen, left worse than right. No significant c entral canal narrowing is seen. L5-S1: Normal in appearance. IMPRESSION: Lumbar spine degenerative changes are seen, which are overall worst at the L4-5 level. Mildly accentuated lumbar lordosis can be seen. Reviewed by: Ramsey Patton MD on 03/16/2023 9:47 AM AMANDA Approved by: Ramsey Patton MD on 03/16/2023 9:47 AM AMANDA Station ID: [id number]
== END 2023-03-16 07:41 | disposition home or self-care (01) ==
LOC: DI 07:40
PROVIDERS: ATTEND Orthopaedic Surgery Sports Medicine
DX: M43.8X4 Other specified deforming dorsopathies, thoracic region (principal); M40.14 Other secondary kyphosis, thoracic region; M48.04 Spinal stenosis, thoracic region; M47.816 Spondylosis without myelopathy or radiculopathy, lumbar region; M51.36 Other intervertebral disc degeneration, lumbar region; M48.061 Spinal stenosis, lumbar region without neurogenic claudication; M40.56 Lordosis, unspecified, lumbar region

== ENCOUNTER 2023-07-06 12:38 | Outpatient (CLI) | payer OTHER ==
--- NOTE | 2023-07-06 18:03 | MRI Report ---
PROCEDURE: KNEE WO - LT INDICATIONS: KNEE PAIN TECHNIQUE: Noncontrast sagittal PD fast spin echo and T2 fast spin echo with fat saturation, sagittal 3-D spoile d GE with fat saturation; coronal T1 spin echo and PD fast spin echo with fat saturation, and axial P D fast spin echo with fat saturation through the knee. COMPARISON: Left knee MRI 04/12/2022. FINDINGS: Image quality: Excellent. Anterior cruciate ligament: Moderate to severe mucoid degeneration of the anterior cruciate ligament with posterior pericruciate cysts measuring up to 1.4 x 1.0 x 0.9 cm. Findings have significantly pr ogressed compared to the prior MRI. Posterior cruciate ligament: Intact. Medial collateral ligament: Thickening the proximal medial collateral ligament without surrounding e josé miguel is most likely secondary to a remote prior low-grade sprain. Lateral collateral ligament: Intact. Medial meniscus: Suspected postsurgical changes from prior partial meniscectomy with a markedly dimi nutive residual rim of meniscal tissue at the junction of the posterior horn and body. Previously see n displaced meniscal flap adjacent to the posterior horn is no longer present. No definite recurrent meniscal tear is seen. Lateral meniscus: Intact. Medial and lateral tendons: The semimembranosus tendon insertions appear intact. Visualized portion s of the pes anserinus tendons appear normal. The popliteus tendon appears intact. Iliotibial band appears normal. Anterior structures: The patellar tendon and the distal quadriceps tendon appear intact. No patellar subluxation. No femoral trochlear dysplasia or ventral trochlear prominence. Increased scarring is seen in the infrapatellar fat pad. Bones: No acute trabecular bone injury or fracture. Medial femorotibial cartilage: Mild partial-thickness cartilage thinning and irregularity in the denzel ghtbearing portion of the medial compartment. Lateral femorotibial cartilage: Mild partial-thickness surface cartilage irregularity. Patellofemoral cartilage: No focal large defect. Minimal chondromalacia. Soft tissues: There is a small joint effusion. There is a small medial popliteal cyst. The musculat ure surrounding the knee is normal in bulk. 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 2.Remote prior low-grade sprain of the proximal medial collateral ligament. 3.Postsurgical changes from partial medial meniscectomy with markedly diminutive residual rim of meni scal tissue at the junction of the posterior horn and body. Previously seen displaced tear of the pos terior horn has been removed. No new meniscal tear is seen. 4.No acute trabecular bone injury. Mild tricompartmental chondromalacia. 5.Small joint effusion. Small medial popliteal cyst. Reviewed by: Ayaz Mahajan MD on 07/06/2023 6:01 PM PDT Approved by: Ayaz Mahajan MD on 07/06/2023 6:01 PM PDT Station ID: [id number]
== END 2023-07-06 12:39 | disposition home or self-care (01) ==
LOC: DI 12:38
PROVIDERS: ATTEND Student in an Organized Health Care Education/Training Program
DX: M23.8X2 Other internal derangements of left knee (principal); S83.412D Sprain of medial collateral ligament of left knee, subsequent encounter; M25.462 Effusion, left knee; M71.22 Synovial cyst of popliteal space [Baker], left knee

== ENCOUNTER 2023-10-04 08:00 | Outpatient (CLI) | payer OTHER ==
--- NOTE | 2023-10-04 12:52 | XRAY Report ---
PROCEDURE: Knee 4 View LT INDICATIONS: LEFT KNEE PAIN TECHNIQUE: 4 views of the knee(s) were acquired. COMPARISON: None. FINDINGS: Bones: No acute fractures or dislocations. No suspicious bony lesions. Tricompartmental degenerat luis eduardo changes of the left knee. Mild left and minimal right medial femorotibial compartment joint space narrowing with weightbearing. Soft tissues: No substantial knee joint effusion. No suspicious soft tissue calcifications or masses . IMPRESSION: No acute bony abnormality. Tricompartmental degenerative changes of the left knee. Mild left and minimal right bilateral medial femorotibial compartment joint space narrowing Reviewed by: Barak Us MD on 10/04/2023 12:51 PM PST Approved by: Barak Us MD on 10/04/2023 12:51 PM PST Station ID: [id number]
== END 2023-10-04 23:59 | disposition home or self-care (01) ==
LOC: DI.WOS 08:00
PROVIDERS: ATTEND Orthopaedic Surgery
DX: M17.12 Unilateral primary osteoarthritis, left knee (principal)

== ENCOUNTER 2024-01-09 11:20 | Outpatient (CLI) | payer OTHER ==
[2024-01-09 12:10] VITALS: BP 138/76; O2SAT 99
--- NOTE | 2024-01-09 12:10 | SLEEP CARE CONSULTATION ---
Information from patient questionnaire entered by Edda Zayas. I have reviewed and concur with the information entered by Edda Zayas. This document represents the service I personally performed and the decisions made by me, Geetha Mcclain MD, [facility]. History of Present Illness Service Date and Time: 01/09/2024 1120 Reason for follow up: annual (LAST SEEN 12/2022) Equipment type: CPAP (RESMED) Prior sleep studies: Yes Year and Where: DECEMBER 2020 [facility] HPI additional information: Mr. Perez was diagnosed to have moderate obstructive sleep apnea-hypopnea syndrome and returns today for follow up of CPAP therapy. The patient purchased the ResMed AirSense 11 from [employer]. and was fitted with nasal pillows. He uses the device nightly and all through the night. The compliance report shows that he uses the device 357 nights out of the past 365 nights, averaging 6.6 hours a night. He complains of no particular problem with the device such as soreness on the face, dry nose, epistaxis, nasal congestion or headache. He thinks that the pressure of 5 - 15 cmH2O is comfortable. On the CPAP therapy he notices improvement in his sleep quality, and that he wakes up feeling fresher in the morning and more awake/alert during the day. His notices no snore at all. [place] Sleepiness Scale score is 10. The average residual AHI is 1.4; and average air leak is 0.3 L/minute. The 90th percentile pressure is 9.7 cmH2O. Sleep Study - Results Prior sleep studies: Yes Year and Where: DECEMBER 2020 [facility] CPAP Compliance Data - Data Reviewed with Patient Average duration of nightly device use: 6HRS 34MINS Compliance rate %: 86 (01/05/23-01/04/24) Current pressure setting (cmH2O): 5-15 Average residual AHI: 1.4 Subjective Initial [place] Sleepiness Scale score: 9 (12/31/22) Current [place] Sleepiness Scale score: 10 (01/09/24) Allergies and Home Medications Drug allergies reviewed: Yes Home medication list reviewed: Yes Allergy and home medication list: Allergies ampicillin Allergy (Verified 01/05/24 14:28) Unknown Review of Systems Review of systems same as previous: Yes (MAYELIN CHANGE) Physical Exam Vital signs obtained and entered by: EDDA Torres MA Blood Pressure: 138/76 (LEFT ARM) Cuff size: regular Heart Rate: 69 O2 Saturation: 99 Height: 6 ft Weight: 233 lb 6.4 oz Body Mass Index: 31.6 BMI Classification: Obese Impression and Plan IMPRESSION: 1. Obstructive Sleep Apnea-Hypopnea Syndrome, moderate (AHI = 15.2 at [facility]), with the patient continuing to do well on nasal CPAP therapy. He has excellent compliance and significant clinical benefits. The current pressure appears effective and comfortable. Overall, he is very satisfied with treatment and plans to continue with it long-term. No adjustment is necessary today. PLAN: 1. Continue with autoCPAP set at 5 - 15 cm H2O. 2. Try ResMed N30i mask. 3. Return in one year for follow up or earlier if there is any problem with the treatment. Follow up with Sleep Care in: 1 year Visit Type: In Office Time Spent with Patient (minutes): 15 Provider Statement: I spent 100% of the Face to Face Visit with the patient with greater than 50% spent counseling the patient and coordination of care.
== END 2024-01-09 11:21 | disposition home or self-care (01) ==
LOC: SC 11:20
PROVIDERS: ATTEND Internal Medicine Pulmonary Disease
DX: G47.33 Obstructive sleep apnea (adult) (pediatric) (principal)
CPT/HCPCS: 99212